=== PATIENT | female | born 2000 | race Caucasian/White ===

== ENCOUNTER 2022-12-26 10:27 | Emergency (ER) | payer MEDICAID, OTHER ==
[~2022-12-26] VITALS: Ht 167.6 cm; Wt 131.5 kg
[2022-12-26 10:34] VITALS: BP 130/69; PULSE 92; RESP 18; TEMP 98.5; O2SAT 97
[2022-12-26] MEDS ORDERED: FAMOTIDINE 20 MG TAB PO ONE (11:10)
[2022-12-26] MEDS ORDERED: ONDANSETRON 4 MG ODT PO ONE (11:10)
[2022-12-26 11:56] VITALS: BP 128/66; PULSE 88; RESP 18; TEMP 98.2; O2SAT 97
[2022-12-26 12:26] LABS: BASOPHILS % (AUTO) 0.2 % (0.0-2.0); EOSINOPHILS % (AUTO) 0.4 % (0.0-4.0); HEMATOCRIT 40.4 % (36-48); HEMOGLOBIN 13.7 g/dL (12.0-16.0); LYMPHOCYTES # (AUTO) 1.1 K/uL (2.5-16.5); MEAN CORPUSCULAR HEMOGLOBIN 30 pg (27-31); MEAN CORPUSCULAR HGB CONC 34 g/dL (33-37); MEAN CORPUSCULAR VOLUME 87.7 fL (80-94); MONOCYTES # (AUTO) 0.4 K/uL (0.8-1.0); MONOCYTES % (AUTO) 5.5 % (1.7-9.3); NEUTROPHILS # (AUTO) 5.9 K/uL (1.8-7.7); NEUTROPHILS % (AUTO) 78.9 % (42.2-75.2); PLATELET COUNT (AUTO) 236 K/uL (140-450); RED CELL DISTRIBUTION WIDTH 13.2 % (11.6-13.7); WHITE BLOOD COUNT (AUTO) 7.4 K/uL (4.5-11.0)
[2022-12-26 12:51] LABS: ALBUMIN 3.6 g/dL (3.4-5.0); ANION GAP 8.8 (8-16); CALCIUM 9.6 mg/dL (8.5-10.1); CARBON DIOXIDE 30.3 mmol/L (21-32); CREATININE 0.7 mg/dL (0.6-1.3); POTASSIUM 4.1 mmol/L (3.5-5.1); TOTAL BILIRUBIN 0.4 mg/dL (0.0-1.0); TOTAL PROTEIN, SERUM 8.1 g/dL (6.4-8.2)
[2022-12-26] MEDS ORDERED: ONDA-188 PO (13:22)
== END 2022-12-26 13:24 | disposition home or self-care (01) ==
LOC: MED 10:27
DX: R11.2 Nausea with vomiting, unspecified (principal); R10.13 Epigastric pain; R53.1 Weakness; Z79.899 Other long term (current) drug therapy
CPT/HCPCS: 36415; 80053; 81002; 81025; 83690; 85025; 99283; Q0162

== ENCOUNTER 2023-04-30 08:59 | Emergency (ER) | payer OTHER ==
[~2023-04-30] VITALS: Ht 167.6 cm; Wt 139.5 kg
[~2023-04-30 08:59] MED LIST: ONDA-188 PO
[2023-04-30 09:15] VITALS: BP 145/72; PULSE 124; RESP 20; TEMP 101.2; O2SAT 98
[2023-04-30] MEDS ORDERED: IBUPROFEN 600 MG TAB PO ONE (09:35)
[2023-04-30 10:21] LABS: FLU A ANTIGEN negative (NEGATIVE); FLU B ANTIGEN NEGATIVE (NEGATIVE)
[2023-04-30] MEDS ORDERED: BENZ-300 PO (11:16)
[2023-04-30 11:26] VITALS: BP 145/72; PULSE 124; RESP 20; TEMP 101.2; O2SAT 98
== END 2023-04-30 11:26 | disposition home or self-care (01) ==
LOC: MED 08:59
DX: B34.9 Viral infection, unspecified (principal); Z20.822 Contact with and (suspected) exposure to COVID-19; Z79.899 Other long term (current) drug therapy
CPT/HCPCS: 87081; 99283